=== PATIENT | female | born 1945 | race African-American/Black ===

== ENCOUNTER 2016-10-20 09:54 | Emergency (ER) | payer OTHER ==
[2016-10-20 09:59] VITALS: BMI 43.5
[2016-10-20] MEDS ORDERED: SODIUM CHLORIDE 1,000 ML IV STA (10:21)
[2016-10-20] MEDS ORDERED: ONDANSETRON 4 MG/2 ML VIAL IVPUSH ONE (10:21)
[2016-10-20] MEDS ORDERED: morphine CARPU-JECT 2 MG/1 ML DISP.SYRIN IVPUSH ONE (10:22)
[2016-10-20] MEDS ORDERED: morphine CARPU-JECT 2 MG/1 ML DISP.SYRIN ONE (10:24)
[2016-10-20] MEDS ORDERED: ONDANSETRON 4 MG/2 ML VIAL ONE (10:24)
[2016-10-20 10:44] LABS: URINE APPEARANCE CLEAR; URINE BILIRUBIN NEGATIVE (NEGATIVE); URINE COLOR YELLOW; URINE GLUCOSE (UA) NEGATIVE (NEGATIVE); URINE KETONE NEGATIVE (NEGATIVE); URINE LEUK ESTERASE NEGATIVE (NEGATIVE); URINE NITRITE NEGATIVE (NEGATIVE); URINE PROTEIN NEGATIVE (NEGATIVE); URINE UROBILINOGEN NEGATIVE E.U./dl (0.2-1.0)
[2016-10-20 10:46] LABS: URINE BLOOD 2+ (NEGATIVE)
--- NOTE | 2016-10-20 10:47 | PDOC ---
History of Present Illness - General Chief Complaint: Pain, Acute Stated Complaint: LOWER BACK PAIN Time Seen by Provider: 10/20/16 10:04 History Source: Patient Exam Limitations: No Limitations - History of Present Illness Travel History: No Initial Comments: 10/20/16 10:47 71-year-old female presents to the ED with complaints of left flank pain that radiates to her left lower quadrant since this morning associated nausea. Patient has no urinary complaints, bowel complaints, fever, chills, chest pain or shortness of breath. Patient does state history of kidney stones was numerous years ago to the left side. Patient states was seen here last year for similar complaints and had a CT and x-rays of her spine with negative findings. Timing/Duration: reports: constant Quality: reports: moderate, cramping, sharpness Abdominal Pain Onset Location: reports: flank Pain Radiation: reports: LLQ Activities at Onset: reports: none Aggravating Factors: improves with: None Alleviating Factors: improves with: None Past History - Travel Traveled outside of the country in the last 30 days: No Close contact w/someone who was outside of country & ill: No - Past Medical History Allergies/Adverse Reactions: Allergies Allergy/AdvReac Type Severity Reaction Status Date / Time aspirin Allergy Verified 10/20/16 09:58 Home Medications: Ambulatory Orders Cholecalciferol (Vitamin D3) [Vitamin D3 -] 1,000 unit PO DAILY 08/12/15 Clopidogrel Bisulfate [Clopidogrel] 75 mg PO DAILY 08/12/15 Metoprolol Tartrate [Lopressor] 100 mg PO BID 08/12/15 Simvastatin [Zocor -] 40 mg PO HS 08/12/15 Aspirin Coated [Ecotrin -] 81 mg PO DAILY 10/20/16 Losartan Potassium 0 mg PO DAILY 10/20/16 Cardiac Disorders: Yes HTN: Yes Hypercholesterolemia: Yes Kidney Stones: Yes - Surgical History Abdominal Surgery: Yes Cardiac Surgery: Yes (STENT) Cholecystectomy: Yes - Psycho/Social/Smoking Cessation Hx Anxiety: No Suicidal Ideation: No Smoking History: Never smoked Have you smoked in the past 12 months: No Hx Alcohol Use: No Drug/Substance Use Hx: No Substance Use Type: None Patient Lives Alone: No Review of Systems - Review of Systems Able to Perform ROS?: Yes Constitutional: No: Symptoms Reported HEENTM: No: Symptoms Reported Respiratory: No: Symptoms reported Cardiac (ROS): No: Symptoms Reported ABD/GI: Yes: Nausea, Abdominal cramping : Yes: Flank Pain Musculoskeletal: No: Symptoms Reported Integumentary: No: Symptoms Reported Neurological: No: Symptoms reported Endocrine: No: Symptoms Reported Hematologic/Lymphatic: No: Symptoms Reported *Physical Exam - Vital Signs Last Vital Signs Temp Pulse Resp BP Pulse Ox 98.2 F 74 20 184/109 98 10/20/16 09:56 10/20/16 09:56 10/20/16 09:56 10/20/16 09:56 10/20/16 09:56 - Physical Exam General Appearance: Yes: Nourished, Appropriately Dressed. No: Apparent Distress HEENT: positive: EOMI, DASHAWN, Pharynx Normal. negative: Pale Conjunctivae Neck: positive: Supple Respiratory/Chest: positive: Lungs Clear, Normal Breath Sounds. negative: Chest Tender, Respiratory Distress, Accessory Muscle Use Cardiovascular: positive: Regular Rhythm, Regular Rate. negative: Murmur Gastrointestinal/Abdominal: positive: Soft, Tenderness (left flank and left lower quadrant) Musculoskeletal: positive: CVA Tenderness (L) Extremity: positive: Normal Capillary Refill. negative: Pedal Edema Integumentary: positive: Normal Color, Warm, Moist Neurologic: positive: Motor Strength 5/5 (ambulatory) Heart Score/ECG Review - ECG Intrepretation Rhythm: Regular Rhythm (sinus rhythm first-degree AV block. rate 67. unchanged from previous) ED Treatment Course - LABORATORY CBC & Chemistry Diagram: 10/20/16 10:48 10/20/16 10:48 - RADIOLOGY Radiology Studies Ordered: Category Date Time Status CHEST X-RAY PORTABLE* [RAD] Stat Radiology 10/20/16 10:21 Ordered KIDNEY / RENAL US [US] Stat Ultrasound 10/20/16 10:23 Ordered Medical Decision Making - Medical Decision Making 10/20/16 10:30 Complaining of left flank pain radiating to left lower quadrant associated with nausea. Patient states history of kidney stones and has not seen a urologist in numerous years. Patient had a negative CT done here in April 2016 along with the lumbar spine that showed degenerative changes. Patient has no other complaints at this time including dysuria, hematuria, change in bowel pattern, chest pain, shortness of breath, abdominal distention, rash. Patient states did not take her blood pressure meds this morning secondary to nausea so we will give patient antiemetics along with breakfast and then patient is to take her medications since she arrives with elevated BP 10/20/16 12:35 Laboratory Tests 10/20/16 10/20/16 10/20/16 10:25 10:48 10:48 WBC 4.5 RBC 3.86 Hgb 11.6 Hct 36.3 Plt Count 167 Neutrophils % 85.6 H Sodium 139 Potassium 4.2 Chloride 101 Carbon Dioxide 30 Anion Gap 8 BUN 10 D Creatinine 0.8 Creat Clearance w eGFR > 60 Random Glucose 131 H Calcium 9.0 Total Bilirubin 0.3 AST 31 ALT 30 Urine Blood 2+ H Urine Nitrite Negative Ur Leukocyte Esterase Negative Urine RBC 21 Urine WBC 1 Ultrasound negative for acute findings including hydronephrosis. Patient be discharged home with Flomax and recommendations to take Tylenol and follow-up with referred urologist. Patient will have repeat vitals done. Patient states symptoms have resolved. *DC/Admit/Observation/Transfer Diagnosis at time of Disposition: Left flank pain, Hematuria - Discharge Dispostion Disposition: HOME Condition at time of disposition: Improved - Referrals Referrals: Eric Lovett MD [Staff Physician] - - Patient Instructions Printed Discharge Instructions: DI for Flank Pain, DI for Hematuria Additional Instructions: Please follow up with referred urologist and take the Flomax as prescribed. May take Tylenol for any discomfort and please return to ED if symptoms worsen despite above recommendations.
[2016-10-20 10:51] LABS: URINE MUCUS RARE; URINE RBC 21 /hpf (0-3); URINE WBC 1 /hpf (3-5)
[2016-10-20 10:56] LABS: BASOPHIL 0.3 % (0-2.0); EOSINOPHIL 0.3 % (0-4.5); MCH 30.1 pg (25.7-33.7); MCHC 32.1 g/dl (32.0-36.0); MEAN PLT VOLUME 9.2 fl (7.5-11.1); NEUTROPHILS 85.6 % (42.8-82.8); PLATELET COUNT 167 K/MM3 (134-434); RDW 13.1 % (11.6-15.6); WHITE BLOOD COUNT 4.5 K/mm3 (4.0-10.0)
[2016-10-20 11:57] LABS: ALBUMIN 3.4 g/dl (3.4-5.0); ALK PHOS 66 U/L (45-117); ANION GAP 8 (8-16); BILIRUBIN,TOTAL 0.3 mg/dL (0.2-1.0); CO2 30 mmol/L (21-32); CREATININE 0.8 mg/dL (0.55-1.02); GLUCOSE,RANDOM 131 mg/dL (74-106); SGOT/AST 31 U/L (15-37); SGPT/ALT 30 U/L (12-78); TOT PROT 7.4 g/dl (6.4-8.2)
[2016-10-20 12:51] VITALS: BP 182/89; PULSE 64; TEMP 98.4
--- NOTE | 2016-10-20 16:45 | EKG ---
Test Reason : Blood Pressure : / mmHG Vent. Rate : 067 BPM Atrial Rate : 067 BPM P-R Int : 224 ms QRS Dur : 080 ms QT Int : 432 ms P-R-T Axes : 043 047 057 degrees QTc Int : 456 ms SINUS RHYTHM WITH 1ST DEGREE A-V BLOCK CANNOT RULE OUT ANTERIOR INFARCT , AGE UNDETERMINED ABNORMAL ECG WHEN COMPARED WITH ECG OF 23-APR-2016 18:57, NO SIGNIFICANT CHANGE WAS FOUND Confirmed by CLAUDIA CAMILO, URSULA ([id number]) on 10/20/2016 4:45:28 PM Referred By: Confirmed By:URSULA TAYLOR MD
== END 2016-10-20 12:55 | disposition home or self-care (01) ==
LOC: JER 09:54
PROC: 3E033NZ Introduction of Analgesics, Hypnotics, Sedatives into Peripheral Vein, Percutaneous Approach (ICD-10-PCS; principal; 2016-10-20)
PROC: 3E033GC Introduction of Other Therapeutic Substance into Peripheral Vein, Percutaneous Approach (ICD-10-PCS; 2016-10-20)
DX: R10.32 Left lower quadrant pain (principal); R31.9 Hematuria, unspecified; Z87.442 Personal history of urinary calculi; I25.10 Atherosclerotic heart disease of native coronary artery without angina pectoris; I10 Essential (primary) hypertension; Z95.5 Presence of coronary angioplasty implant and graft; E78.00 Pure hypercholesterolemia, unspecified
CPT/HCPCS: 36415; 71010-TC; 76775-TC; 80053; 81003; 81015; 85025; 87086; 93005; 93010; 99285-25